=== PATIENT | male | born 1970 | race Caucasian/White ===

== ENCOUNTER 2018-01-22 12:59 | Observation (INO) | payer OTHER ==
[2018-01-22] MEDS ORDERED: HYDROmorphONE/DILAUDID 1 MG/ML INJ IVP ONE (14:05)
[2018-01-22] MEDS ORDERED: HYDROmorphONE/DILAUDID 2 MG/ML INJ ONE (14:07)
--- NOTE | 2018-01-22 14:51 | EDPHY ---
H & P Time Seen by Provider: 01/22/18 13:02 HPI/ROS: CHIEF COMPLAINT: Right ankle injury HISTORY OF PRESENT ILLNESS: 47-year-old male presents to the emergency department with injury to his right ankle and right leg. The patient was snowboarding at [place] and went off of a jump and landed injuring his right leg. He did not hit his head or lose consciousness. He denies neck or back pain. Denies chest pain or difficulty breathing. Denies abdominal pain. Denies symptoms in the left lower extremity or upper extremities bilaterally. REVIEW OF SYSTEMS: Constitutional: No fever, no chills. Eyes: No double or blurry vision. ENT: No sore throat. Respiratory: No cough, no shortness of breath. Cardiac: No chest pain. Gastrointestinal: No abdominal pain, vomiting or diarrhea. Genitourinary: No dysuria. Musculoskeletal: No neck or back pain. Skin: No rashes. Neurological: No headache. Past Medical/Surgical History: Negative Social History: Smoking Status: Never smoked Physical Exam: General Appearance: Alert, no distress. No visible signs of trauma to his head. Mentating normally and answering questions appropriately. Eyes: Pupils equal and round. Extraocular motions are all intact. ENT: Mouth: Mucous membranes moist. Respiratory: No wheezing, rhonchi, or rales, lungs are clear to auscultation. Cardiovascular: Regular rate and rhythm. Gastrointestinal: Abdomen is soft and nontender, no masses, no rebound or guarding, bowel sounds normal. Neurological: Alert and oriented x 3, cranial nerves II through XII grossly intact Skin: Warm and dry, no rashes. Musculoskeletal: Nontender to palpate along the cervical, thoracic or lumbar spine. Neck is supple. Extremities: Right lower extremity is in a cardboard splint by EMS. He has normal sensation to light touch with normal 2 point discrimination. Strong dorsalis pedis and posterior tibial pulse felt on the right foot. Full range of motion of the left lower extremity and upper extremities bilaterally. Psychiatric: Patient is oriented X 3, there is no agitation. Constitutional: Initial Vital Signs Temperature (C) 36.8 C 01/22/18 12:58 Heart Rate 67 01/22/18 12:58 Respiratory Rate 16 01/22/18 12:58 Blood Pressure 139/87 H 01/22/18 12:58 O2 Sat (%) 92 01/22/18 12:58 O2 Delivery Mode Room Air Allergies/Adverse Reactions: No Known Allergies Allergy (Unverified 01/22/18 13:06) Home Medications: Medication Instructions Recorded Ibuprofen [Motrin (*)] 200 mg PO Q4 PRN 01/22/18 Medical Decision Making - Diagnostics Imaging: I viewed and interpreted images myself ED Course/Re-evaluation: 47-year-old male presents to the emergency department with right tib-fib fracture. I spoke with the on-call orthopedic surgeon, Dr. Agapito Bowman, who will take this patient to the operating room today. The patient's leg was elevated. He was kept NPO. No evidence of compartment syndrome on examination. Differential Diagnosis: Including but not limited to fracture, dislocation, contusion, sprain, compartment syndrome - Data Points Medications Given: Discontinued Medications Hydromorphone HCl (Dilaudid) 1 mg IVP EDNOW ONE Stop: 01/22/18 14:06 Last Admin: 01/22/18 14:09 Dose: 1 mg Departure - Departure Disposition: To OP Cath/Surgery Clinical Impression: Fracture of right lower leg Qualifiers: Encounter type: initial encounter Fracture type: closed Qualified Code(s): S82.91XA - Unspecified fracture of right lower leg, initial encounter for closed fracture Condition: Good
[2018-01-22] MEDS ORDERED: LR 1,000 ML IV ONE (15:25)
[2018-01-22] MEDS ORDERED: ceFAZolin 2 GM/DEXTROSE 100 ML IV ONE (15:35)
--- NOTE | 2018-01-22 15:35 | PDANEPAE ---
ANE Past Medical History - Pulmonary History Hx Oxygen in Use at Home: No Hx Sleep Apnea: No - Endocrine History Hx Diabetes: No ANE Review of Systems Review of Systems: ANE Patient History - Allergies Allergies/Adverse Reactions: No Known Allergies Allergy (Unverified 01/22/18 13:06) - Home Medications Home Medications: Ibuprofen [Motrin (*)] 200 mg PO Q4 PRN 01/22/18 [Last Taken Unknown] - NPO status NPO Since - Liquids (Date): 01/22/18 NPO Since - Liquids (Time): 08:00 NPO Since - Solids (Date): 01/22/18 NPO Since - Solids (Time): 08:00 - Smoking Hx Smoking Status: Never smoked ANE Labs/Vital Signs - Vital Signs Blood Pressure: 130/90 Heart Rate: 62 Respiratory Rate: 16 O2 Sat (%): 97 Height: 185.42 cm Weight: 88.451 kg ADOLPH Physical Exam - Airway Neck exam: FROM Mallampati Score: Class 2 Mouth exam: normal dental/mouth exam - Pulmonary Pulmonary: no respiratory distress - Cardiovascular Cardiovascular: regular rate and rhythym - ASA Status ASA Status: II ANE Anesthesia Plan Anesthesia Plan: GA w LMA
[2018-01-22] MEDS ORDERED: MIDAZOLAM 2 MG/2 ML VIAL ONE (15:45)
[2018-01-22] MEDS ORDERED: fentaNYL 250 MCG/5 ML INJ ONE (15:45)
[2018-01-22] MEDS ORDERED: PROPOFOL 200 MG/20 ML VIAL ONE (15:45)
[2018-01-22] MEDS ORDERED: LIDOCAINE 2% 100 MG/5 ML SYR ONE (15:46)
[2018-01-22] MEDS ORDERED: METOCLOPRAMIDE 10 MG/2 ML VIAL ONE (15:46)
[2018-01-22] MEDS ORDERED: DEXAMETHASONE 4 MG/ML VIAL ONE ×2 (15:46)
[2018-01-22] MEDS ORDERED: BUPIVACAINE/EPI 0.5% 30 ML SDV ONE ×2 (15:47→17:05)
[2018-01-22] MEDS ORDERED: BUPIVACAINE 0.25% 30 ML SDV ONE (15:47)
[2018-01-22] MEDS ORDERED: ceFAZolin 2 GM/SWFI 2 GM/20 ML SYR IVP ONE (16:00)
--- NOTE | 2018-01-22 16:06 | GHP ---
[f rep st] PREOP HISTORY AND PHYSICAL DATE OF ADMISSION: 01/22/2018 CHIEF COMPLAINT: Right lower leg injury. HISTORY OF PRESENT ILLNESS: Patient is a 47-year-old, who on the day of presentation and surgery sustained a fall while snowboarding, resulting in immediate right lower leg pain and deformity. He was unable to weightbear. He denies any previous problems or injuries relative to his lower leg. PAST MEDICAL HISTORY: Unremarkable. MEDICATIONS: He takes no medicine. ALLERGIES: Lists no drug allergies. SOCIAL HISTORY: Negative for tobacco use. PHYSICAL EXAM: GENERAL: He is alert and oriented x3, in mild distress secondary to his right lower leg pain. HEENT: Head is normocephalic. Pupils equal, round, reactive to light. Extraocular eye movements intact. NECK: Supple. No JVD or lymphadenopathy. CHEST: Clear to auscultation. HEART: Regular rate, rhythm. No murmurs or gallops. ABDOMEN: Soft, nontender, nondistended. GENITAL, RECTAL, AND BREAST: Deferred. EXTREMITY: Reveals mild swelling, with no gross deformity in his right lower leg. He has tenderness at his distal 3rd tibial site. NEUROVASCULAR: Grossly intact. There is no sign of compartment syndrome. ASSESSMENT: Right oblique distal diaphyseal tibia fracture. PLAN: The patient is scheduled to undergo closed intramedullary nailing. /[id number]/MODL MTDD
[2018-01-22] MEDS ORDERED: ONDANSETRON 4 MG/2 ML VIAL IVP PRN (17:42)
[2018-01-22] MEDS ORDERED: MEPERIDINE 25 MG/ML SYR IVP PRN (17:42)
[2018-01-22] MEDS ORDERED: NALOXONE HCL 0.4 MG/ML INJ IVP PRN ×2 (17:42→17:58)
[2018-01-22] MEDS ORDERED: ALBUTEROL 3 ML DEYVIAL IH PRN (17:42)
--- NOTE | 2018-01-22 17:44 | POSTANESTH ---
Post Anesthetic Evaluation Cardiovascular Status: Similar to Pre-Op Cond Respiratory Status: Similar to Pre-op Cond. Level of Consciousness/Mental Status: Mildly Sleepy, Arousable Pain Control: Adequate, Prn Tx Ordered Nausea/Vomiting Control: Adequate, Prn Tx Ordered Complications Possibly Related to Anesthesia: None Noted
[2018-01-22] MEDS ORDERED: MEPERIDINE 25 MG/ML SYR ONE (17:45)
[2018-01-22] MEDS ORDERED: LACTULOSE 20 GM/30 ML UDCUP PO PRN (17:47)
[2018-01-22] MEDS ORDERED: POLYETHYLENE GLYCOL 3350 17 GM PKT PO PRN (17:47)
[2018-01-22] MEDS ORDERED: MAGNESIUM HYDROXIDE 30 ML UDCUP PO PRN (17:47)
[2018-01-22] MEDS ORDERED: BISACODYL 10 MG SUPP PR PRN (17:47)
[2018-01-22] MEDS ORDERED: morphINE PCA 30 MG/30 ML PCA IV PRN (17:47)
--- NOTE | 2018-01-22 17:47 | POSTOPPROG ---
Post Op Note Date of Operation: 01/22/18 Surgeon: Agapito Bowman Anesthesia: GET(General Endotracheal) Pre-op Diagnosis: R tibia fx Post-op Diagnosis: same Procedure: ORIF R tibia fx Inf/Abcess present in the surg proc area at time of surgery?: No EBL: 50-100
[2018-01-22] MEDS ORDERED: D5W 1/2 NS W/ 20 KCl/L 1,000 ML IV SCH (18:00)
[2018-01-22] MEDS ORDERED: fentaNYL 100 MCG/2 ML INJ ONE (18:04)
[2018-01-22] MEDS: fentaNYL 100 MCG/2 ML INJ IVP PRN ×3 (18:08→19:01)
[2018-01-22] MEDS ORDERED: oxyCODONE IR 5 MG TAB ONE (19:07)
[2018-01-22] MEDS: oxyCODONE IR 5 MG TAB PO PRN (19:09)
[2018-01-22 19:40] VITALS: RESP 16
[2018-01-22] MEDS: SENNOSIDES/DOCUSATE SODIUM TAB PO SCH (20:02)
[2018-01-22] MEDS ORDERED: ceFAZolin 2 GM/DEXTROSE 100 ML IV SCH (22:00)
[2018-01-22] MEDS: ceFAZolin 2 GM/SWFI 2 GM/20 ML SYR IVP SCH (23:27)
[2018-01-23 07:53] VITALS: BP 111/61; PULSE 75; TEMP 98.1; O2SAT 92
[2018-01-23] MEDS: SENNOSIDES/DOCUSATE SODIUM TAB PO SCH (08:33)
[2018-01-23] MEDS: ceFAZolin 2 GM/SWFI 2 GM/20 ML SYR IVP SCH (08:35)
--- NOTE | 2018-01-23 09:00 | SOAPPROG ---
SOAP Progress Note Assessment/Plan: Assessment: R Tibia Fx Pain tolerable Charli po + U/O RLE Splint intact, mild sang D/C Toes 1-5 with + DF/PF Good cap refill Plan: OOB/PT D/C home 01/23/18 08:58 Objective: Vital Signs Temp Pulse Resp BP Pulse Ox 36.7 C 75 16 111/61 92 01/23/18 07:52 01/23/18 07:52 01/23/18 07:52 01/23/18 07:52 01/23/18 07:52 01/22/18 01/23/18 01/24/18 05:59 05:59 05:59 Intake Total 1060 Output Total 700 Balance 360 ICD10 Worksheet Patient Problems: Problems Problem Status Onset Fracture of right lower leg Acute
--- NOTE | 2018-01-23 09:03 | GCON ---
[f rep st] CONSULTATION DATE OF CONSULTATION: 01/22/2018 REASON FOR CONSULTATION: Right leg injury. HISTORY RELATIVE TO CONSULTATION: The patient is a 47-year-old, who presented with right lower leg i njury. He sustained a twisting fall while snowboarding. He denies any previous problems relative to his right lower leg. EXAMINATION RELATIVE TO CONSULTATION: The patient's right lower leg is held in a slightly outwardly rotated position. There is moderate swelling and tenderness along the mid distal diaphyseal region. His distal neurovascular exam including tibial and peroneal nerves grossly intact. He has good capi llary refill in his toes with palpable dorsalis pedis pulse. There is no evidence of compartment syn drome. IMAGING: AP and lateral radiographs of his tibia show an oblique distal diaphyseal tibia fracture wi th proximal fibula fracture. ASSESSMENT: Right tibia and fibula fracture. PLAN: It is recommended that operative treatment consisting of intramedullary nailing proceed. /[id number]/MODL
--- NOTE | 2018-01-23 09:19 | GOP ---
[f rep st] OPERATIVE REPORT DATE OF OPERATION: 01/22/2018 SURGEON: Agapito Bowman MD ANESTHESIA: General. PREOPERATIVE DIAGNOSIS: Right closed tibia and fibula fracture. POSTOPERATIVE DIAGNOSIS: Right closed tibia and fibula fracture. PROCEDURE PERFORMED: 1. Closed intramedullary nailing, right tibia fracture. 2. Closed treatment right fibula fracture. 3. Intraoperative use if fluoroscopy. FINDINGS: ESTIMATED BLOOD LOSS: 100 mL. INDICATIONS: The patient is a 47-year-old who sustained a tibia fracture while snowboarding. Based on the nature of his fracture pattern it was recommended that operative treatment consisting of close d intramedullary nailing be pursued. Patient acknowledged he understood the potential risks of the o peration, including but not limited to, bleeding, infection, neurovascular damage including loss of l imb or limb function, malunion, nonunion, pain or functional limitations despite operative treatment, and anesthetic risks. He acknowledged he understood the potential risks, planned procedure, and pos toperative plan well, had all questions answered prior to surgery. He gave his consent for the opera tive procedure. DESCRIPTION OF PROCEDURE: The patient was brought in the operating room after IV antibiotics were ad ministered. He was placed in a supine position where general anesthetic was administered. A tourniq uet was placed on the right thigh but not connected or inflated. The right lower extremity was prepp ed and draped in standard sterile fashion. A small anterior incision on the knee was made just infer ior to the patella. Skin and subcutaneous tissue were sharply incised. Dissection was carried down to the prepatellar fascia which was incised in line with the skin incision. The patellar tendon was reflected laterally exposing access to the anterior tibial tubercle. A guide pin from the [employer] bial nail was inserted into the optimal starting position central on the AP plane and at the anterior aspect of the proximal tibia on the lateral plane. Guide pin position was confirmed fluoroscopicall y. The guide pin was inserted and the coring reamer was utilized to create a starting hole, taking c are to avoid damage to the patellar tendon. A utility hand was placed to create an initial hole. A g uide thang was then placed on the intramedullary canal. Under fluoroscopic guidance, the location of t he oblique fracture was identified. A very limited incision was made along the lateral aspect of the tibia. A 2-point reduction clamp was carefully inserted along the posterior lateral aspect of the t ibia taking care to avoid damage to the neurovascular bundle. The other point on the 2-point reducti on clamp was placed on the medial aspect of the tibia. The fracture was then reduced utilizing the c lamp for the placement of the intramedullary guide thang and reaming. The guide thang was then placed on the central aspect of the distal tibia. Fluoroscopic position was confirmed. Intramedullary reamin g was then performed starting with the initial starting reamer, continuing in 1 mm increments up to 1 1, and then 0.5 mm increments up to 12. Favorable endosteal contact was achieved. A 390 mm long by 11 mm tibial nail was then impacted into place. Position was confirmed fluoroscopically. A single s tatic locking bolt was placed proximally in a medial to lateral direction through the aiming guide. The aiming guide was then removed and a +0 end cap was inserted in the proximal aspect of the nail. The knee was then extended and distal locking bolts were placed. Utilizing a freehand technique unde r fluoroscopic guidance, 2 [id number] locking bolts were placed in distal aspect of the nail. Locking bolt position was confirmed fluoroscopically and felt to be favorable, as well as fracture r eduction. Attention was directed towards closure. The prepatellar fascia was closed with 2-0 Vicryl suture in interrupted fashion. Subcutaneous tissue closed with 3-0 Vicryl in an interrupted fashion. Skin jackie sed with skin shantel. 0.5% Marcaine with epinephrine was injected in the wound sites. The wounds w ere dressed with sterile Adaptic, 4 x 4, Kerlix, and placed in a posterior below-knee splint for "sof t tissue protection." Patient was taken to the recovery room, extubated, in stable condition postope ratively. All sponge, needle, and instrument counts were reported as being correct. DRAINS: None. COMPLICATIONS: None. PLAN: The patient will be admitted for overnight observation. He be initially nonweightbearing on h is operative extremity. /[id number]/MODL
[2018-01-23] MEDS: oxyCODONE IR 5 MG TAB PO PRN (11:26)
== END 2018-01-23 13:28 | disposition home or self-care (01) ==
LOC: EDUNIT# → UNDOADMOB 14:17 → F3N 15:11
PROVIDERS: ADMIT Orthopaedic Surgery Foot and Ankle Surgery; ATTEND Orthopaedic Surgery Foot and Ankle Surgery
DX: S82.231A Displaced oblique fracture of shaft of right tibia, initial encounter for closed fracture (principal); S82.491A Other fracture of shaft of right fibula, initial encounter for closed fracture; V00.311A Fall from snowboard, initial encounter; Y93.23 Activity, snow (alpine) (downhill) skiing, snowboarding, sledding, tobogganing and snow tubing; Y92.838 Other recreation area as the place of occurrence of the external cause
CPT/HCPCS: 27759; 73590; 76001; 97116; 97161; 97530; G0378; 96374; C1713; J0690; J1100; J1170; J2001; J2175; J2250; J2704; J2765; J3010

== ENCOUNTER → 2018-12-22 | Outpatient (CLI) | payer OTHER ==
[~2018-12-22] MED LIST: GADOBUTROL 10 ML VIAL IVP ONE
== END ==
LOC: FIMAGING 15:10
PROVIDERS: ATTEND Psychiatry & Neurology Neurology
DX: R56.9 Unspecified convulsions (principal)
CPT/HCPCS: A9585

== ENCOUNTER → 2019-01-12 | Outpatient (CLI) | payer OTHER ==
--- NOTE | 2019-01-13 07:30 | CPEEG ---
[f rep st] ELECTROENCEPHALOGRAM 4-HOUR VIDEO EEG DATE OF STUDY: 01/12/2019 INTERPRETATION: This 4-hour video EEG recording is abnormal due to the presence of rare potentially epileptogenic abnormalities over the left temporal head regions. These findings would be consistent with a focal seizure disorder. The patient did not have any clinical events during the video EEG monitoring session. I contacted the patient directly today with the results and a treatment plan based on the abnormal findings of this study. REPORT: This 4-hour video EEG contains 10 Hz alpha activity to the posterior head regions. There was no abnormal activation at rest, during photic stimulation or hyperventilation. The patient became drowsy and fell into sustained sleep during the study. During drowsiness and sleep, there was rare activation of left temporal sharp waves. Please see Epoch [id number] for an example. The patient did not have any clinical events during the video EEG monitoring session. I contacted the patient directly today with the results and a treatment plan based on the abnormal findings of this study. /[id number]/MODL MTDD
== END ==
LOC: FCPNEURO 08:14
PROVIDERS: ATTEND Psychiatry & Neurology Neurology
DX: R56.9 Unspecified convulsions (principal)